=== PATIENT | male | born 1985 | race Caucasian/White ===

== ENCOUNTER 2023-07-21 10:10 | Inpatient (IN) | payer MEDICAID ==
[~2023-07-21] VITALS: Ht 175.3 cm; Wt 78.1 kg
[2023-07-21] MEDS ORDERED: mag hydrox/Alum hydrox/simeth 30ml oral suspension PO PRN (11:40)
[2023-07-21] MEDS ORDERED: acetaminophen 325mg tablet PO PRN (11:40)
[2023-07-21] MEDS ORDERED: loperamide 2mg capsule PO PRN (11:40)
[2023-07-21 12:28] VITALS: RESP 18; O2SAT 100
[2023-07-21] MEDS ORDERED: SERT-434 PO (13:09)
[2023-07-21 19:00] VITALS: RESP 20; O2SAT 99
[2023-07-21] MEDS: acetaminophen 325mg tablet PO PRN (21:15)
[2023-07-22] MEDS: sertraline 50mg tablet PO SCH (07:19)
[2023-07-22] MEDS: nicotine 21mg patch - 24 hr TD SCH (07:19)
[2023-07-22 07:54] VITALS: RESP 18; O2SAT 99
[2023-07-22 19:00] VITALS: RESP 17; O2SAT 99
[2023-07-23 07:00] VITALS: RESP 16; O2SAT 98
[2023-07-23] MEDS: sertraline 50mg tablet PO SCH (08:34)
[2023-07-23] MEDS: ESCITALOPRAM 10 mg tablet 10 MG TABLET PO SCH (08:36)
[2023-07-23 09:23] LABS: CHOL/HDL RATIO 3.1 (0.00-4.99); CHOLESTEROL 141 MG/DL (0-200); HDL CHOLESTEROL 45 MG/DL (35-60); LDL CHOLESTEROL 91 MG/DL (50-100); TRIGLYCERIDES 67 MG/DL (20-135)
[2023-07-23 09:24] LABS: HEMOGLOBIN A1C 4.5 % (4.5-6.2)
[2023-07-23] MEDS: hydrOXYzine 25 MG tablet PO PRN (15:01)
[2023-07-23 19:00] VITALS: RESP 16; O2SAT 99
[2023-07-24 07:00] VITALS: RESP 16; O2SAT 100
[2023-07-24 19:00] VITALS: RESP 14; O2SAT 98
[2023-07-24] MEDS: LORazepam 0.5 MG tablet PO PRN (21:55)
[2023-07-24 22:11] LABS: BILIRUBIN,URINE NEGATIVE (Neg); COLOR,URINE YELLOW (Yellow); GLUCOSE, URINE NEGATIVE (Neg); KETONES,URINE NEGATIVE (Neg); LEUKOCYTE ESTERASE ,URINE NEGATIVE (Neg); NITRITES, URINE NEGATIVE (Neg); OCCULT BLOOD,URINE NEGATIVE (Neg); PROTEIN,URINE NEGATIVE (Neg); UROBILINOGEN,URINE 0.2 E.U/dL (0.2-1.0)
[2023-07-24 22:24] LABS: CLARITY,URINE CLOUDY (Clear); UA COLLECTION TYPE VOIDED
[2023-07-24 22:26] LABS: AMORPHOUS PHOSPHATES 4+; BACTERIA,URINE 1+ /HPF (Neg); RBC,URINE 0-2 /HPF (0-2); SQUAMOUS EPITHELIAL CELL,UR FEW /LPF (FEW); WBC,URINE 0-4 /HPF (0-4)
[2023-07-25 07:00] VITALS: RESP 16; O2SAT 100
[2023-07-25] MEDS: acetaminophen 325mg tablet PO PRN (19:05)
[2023-07-25 19:37] VITALS: BP 105/56; PULSE 76; RESP 18; TEMP 98.7; O2SAT 98
[2023-07-25] MEDS: LORazepam 0.5 MG tablet PO PRN (20:10)
[2023-07-25] MEDS: traZODone 50mg tablet PO PRN (20:11)
[2023-07-26 07:00] VITALS: RESP 16; O2SAT 99
[2023-07-26] MEDS: sertraline 25mg tablet PO SCH (08:07)
[2023-07-26] MEDS: ESCITALOPRAM 10 mg tablet 10 MG TABLET PO SCH (08:12)
[2023-07-26] MEDS: baclofen 10mg tablet PO PRN (11:13)
[2023-07-26 19:00] VITALS: RESP 16; O2SAT 99
[2023-07-26 20:00] VITALS: BP 117/62; PULSE 68; RESP 16; TEMP 97.8; O2SAT 99
[2023-07-27 07:00] VITALS: RESP 14; O2SAT 99
[2023-07-27 08:00] VITALS: BP 98/62; PULSE 73; RESP 16; TEMP 98.2; O2SAT 99
[2023-07-27] MEDS: NICOTINE POLACRILEX 2 MG LOZENGE BC PRN (16:29)
[2023-07-27 19:00] VITALS: BP 114/60; PULSE 78; RESP 16; TEMP 97; O2SAT 100
[2023-07-27] MEDS: magnesium hydroxide 30ml (MOM) UD suspension PO PRN (21:03)
[2023-07-27] MEDS: gabapentin 100mg capsule PO SCH (21:03)
[2023-07-28 07:00] VITALS: RESP 16; O2SAT 99
[2023-07-28 08:00] VITALS: BP 96/55; PULSE 85; RESP 16; TEMP 98; O2SAT 99
[2023-07-28 18:18] LABS: BASOPHILS % (AUTO) 0.5 % (0-1); EOSINOPHILS # (AUTO) 0.1 X10'3 (0-0.9); EOSINOPHILS % (AUTO) 1.5 % (0-6); HEMATOCRIT 38.6 % (42.0-52.0); HEMOGLOBIN 13.8 g/dl (14.0-17.9); LYMPHOCYTES % (AUTO) 18.3 % (21-51); MEAN CORPUSCULAR HEMOGLOBIN 31.2 PG (27.0-31.0); MEAN CORPUSCULAR HGB CONC 35.7 g/dL (33.0-36.5); MEAN CORPUSCULAR VOLUME 87.3 FL (78-98); MEAN PLATELET VOLUME 7.2 FL (7.4-10.4); MONOCYTES # (AUTO) 0.5 X10'3 (0-0.9); MONOCYTES % (AUTO) 9.6 % (2-12); NEUTROPHILS # (AUTO) 3.8 X10'3 (1.8-7.7); NEUTROPHILS % (AUTO) 70.1 % (42-75); PLATELET COUNT 228 X10'3 (140-440); RED BLOOD COUNT 4.41 X10'6 (4.70-6.10); RED CELL DISTRIBUTION WIDTH 15.5 % (11.5-14.5); WHITE BLOOD COUNT 5.3 X10'3 (4.5-11.0)
[2023-07-28 18:30] LABS: ALANINE AMINOTRANSFERASE 42 U/L (12-78); ALBUMIN 3.7 G/DL (3.4-5.0); ALBUMIN/GLOBULIN RATIO 1.1 (1.1-1.5); ALKALINE PHOSPHATASE 79 IU/L (46-116); ANION GAP 8 (8-16); ASPARTATE AMINO TRANSFERASE 23 U/L (10-37); BILIRUBIN,TOTAL 0.7 MG/DL (0.1-1.0); BLOOD UREA NITROGEN 15 MG/DL (7-18); BUN/CREATININE RATIO 13.4 (10.0-20.0); CALCIUM 8.8 MG/DL (8.5-10.1); CHLORIDE 105 MMOL/L (99-107); CREATININE 1.12 MG/DL (0.60-1.10); GLUCOSE 107 MG/DL (70-104); POTASSIUM 4.4 MMOL/L (3.5-5.1); SODIUM 142 MMOL/L (135-145); TOTAL CARBON DIOXIDE 29.1 MMOL/L (24-32); eCRCL 90 ML/MIN; eGFR 74 ML/MIN
[2023-07-28 18:39] LABS: THYROID STIMULATING HORMONE 1.08 ulU/ml (0.34-4.50)
[2023-07-28 20:00] VITALS: BP 122/89; PULSE 85; RESP 16; TEMP 98.5; O2SAT 99
[2023-07-29 07:00] VITALS: BP 110/66; PULSE 90; RESP 16; TEMP 98.1; O2SAT 99
[2023-07-29 20:32] VITALS: BP 106/47; PULSE 82; RESP 18; TEMP 98.1; O2SAT 99
[2023-07-30 07:00] VITALS: BP 96/57; PULSE 93; RESP 16; TEMP 98.4; O2SAT 100
[2023-07-30] MEDS ORDERED: naproxen 500mg tablet PO PRN (13:15)
[2023-07-30] MEDS ORDERED: SUMAtriptan 25 MG tablet PO PRN (13:15)
[2023-07-30 19:49] VITALS: BP 119/66; PULSE 76; RESP 16; TEMP 98.7; O2SAT 98
[2023-07-31 07:00] VITALS: RESP 16; O2SAT 100
[2023-07-31 08:45] VITALS: BP 119/73; PULSE 77; RESP 16; TEMP 97.8; O2SAT 100
[2023-07-31] MEDS ORDERED: GABA-530 PO (09:14)
[2023-07-31] MEDS ORDERED: NAPR-56 PO (09:14)
[2023-07-31] MEDS ORDERED: ESCI-8 PO (09:14)
[2023-07-31] MEDS ORDERED: HYDR-3686 PO (09:14)
[2023-07-31] MEDS ORDERED: NICO-687 TD (09:14)
[2023-07-31] MEDS ORDERED: TRAZ-251 PO (09:14)
== END 2023-07-31 13:20 | disposition home or self-care (01) | DRG 751 ==
LOC: ADULT MH 11:21
PROVIDERS: ADMIT Psychiatry & Neurology Psychiatry; ATTEND Psychiatry & Neurology Psychiatry
PROC: GZHZZZZ Group Psychotherapy (ICD-10-PCS; principal; 2023-07-22)
PROC: GZ56ZZZ Individual Psychotherapy, Supportive (ICD-10-PCS; 2023-07-24)
PROC: GZ51ZZZ Individual Psychotherapy, Behavioral (ICD-10-PCS; 2023-07-25)
DX: F33.2 Major depressive disorder, recurrent severe without psychotic features (principal); G40.909 Epilepsy, unspecified, not intractable, without status epilepticus; R45.851 Suicidal ideations; F12.10 Cannabis abuse, uncomplicated; F43.10 Post-traumatic stress disorder, unspecified; G89.29 Other chronic pain; F60.9 Personality disorder, unspecified; M79.18 Myalgia, other site; M54.9 Dorsalgia, unspecified; F41.9 Anxiety disorder, unspecified; G43.909 Migraine, unspecified, not intractable, without status migrainosus; Z59.00 Homelessness unspecified
CPT/HCPCS: 36415; 71045; 80053; 80061; 81001; 83036; 84443; 85025; 87081; A6250; Q0177